=== PATIENT | female | born 1990 | race Caucasian/White ===

== ENCOUNTER 2017-04-02 12:39 | Emergency (ER) | payer OTHER ==
--- NOTE | 2017-04-02 14:18 | RAD ---
HISTORY: syncope, head trauma COMPARISONS: None TECHNIQUE: Multiple contiguous axial CT scans were obtained of the head without intravenous contrast. FINDINGS: HEMORRHAGE/INFARCT: There is no hemorrhage or acute infarct. MASSES/SHIFT: There is no mass or shift. EXTRA-AXIAL SPACES: There are no extra-axial fluid collections. SULCI AND VENTRICLES: The sulci and ventricles are normal in size and position for the patient's stated age. CEREBRUM: There are no focal parenchymal abnormalities. BRAINSTEM: There are no focal parenchymal abnormalities. CEREBELLUM: There are no focal parenchymal abnormalities. VESSELS: The vessels are grossly normal. PARANASAL SINUSES: The paranasal sinuses are clear. ORBITS: The orbits are unremarkable. BONES AND SOFT TISSUE: No bone or soft tissue abnormalities are noted. OTHER: None IMPRESSION: NO ACUTE INTRACRANIAL PATHOLOGY.
[2017-04-02 14:24] LABS: Hematocrit 37 % (35-47); Hemoglobin 12.6 g/dl (12.0-16.0); Mean Corpuscular HGB Conc 34 g/dl (31-36); Mean Corpuscular Hemoglobin 32 pg (27-31); Mean Corpuscular Volume 94 fL (80-97); Red Blood Count 3.99 10^6/ul (4.0-5.4); Red Cell Distribution Width 14 % (10.5-15); White Blood Count 9.3 10^3/ul (3.5-10.8)
[2017-04-02 14:25] LABS: Add Diff/Slide Review? Slide Review Added; Comments Flag Yes
[2017-04-02 14:37] VITALS: BP 131/87
[2017-04-02 14:39] LABS: ALT 163 U/L (7-52); Albumin 4.3 g/dL (3.2-5.2); Alkaline Phosphatase 59 U/L (34-104); BUN/Creatinine Ratio 16.4 (8-20); Blood Urea Nitrogen 12 mg/dL (6-24); CO2 Carbon Dioxide 26 mmol/L (22-32); Calcium 9.3 mg/dL (8.6-10.3); Chloride 104 mmol/L (101-111); EGFR African American 123.9 (>60); EGFR Non-African American 96.4 (>60); Globulin 3.2 g/dL (2-4); Glucose 96 mg/dL (70-100); Total Protein 7.5 g/dL (6.4-8.9)
[2017-04-02 14:49] LABS: Anion Gap 6 mmol/L (2-11); Sodium 136 mmol/L (133-145)
[2017-04-02 14:56] LABS: Mean Platelet Volume 9 um3 (7.4-10.4)
--- NOTE | 2017-04-02 15:33 | ED ---
Ermias Oneal Angela, scribed for Kathryn Bello MD on 04/02/17 at 1322 . Syncope/Near Syncope - HPI Summary HPI Summary: This pt is a 26 y/o female accompanied by significant other presenting to [facility] c/o headache s/p syncope last night at 2014. Pt reports she had a head strike and since then she has headache. Pt denies vomiting. She is an inpatient at [facility] for heroin addiction. Pt states she was a heroin user for 5 years. Pt reports she got a vivitrol shot at about 1900 last night and 1 hour after she passed out and had a syncopal episode. She has been on vivitrol for 1 month now. Pt notes she felt light-headed, dizzy and her hands began to sweat prior to her syncope. Pt states she fell backwards straight on her head. She denies any other PMHx. - History Of Current Complaint Chief Complaint: EDSyncope Hx Obtained From: Patient Onset/Duration: Lasting Days - headache, Still Present Timing: Constant - headache Context: Witnessed Associated Head Trauma: Yes Aggravating Factor(s): Nothing Alleviating Factor(s): Nothing Associated Signs And Symptoms: Diaphoresis, Dizzy, Headache, Lightheadedness, Other - NEG: vomiting - Allergies/Home Medications Allergies/Adverse Reactions: Allergies Allergy/AdvReac Type Severity Reaction Status Date / Time No Known Allergies Allergy Verified 04/02/17 12:53 PMH/Surg Hx/FS Hx/Imm Hx Endocrine/Hematology History: Denies: Hx Diabetes Cardiovascular History: Denies: Hx Hypertension Infectious Disease History: Yes Infectious Disease History: Denies: Traveled Outside the [place] in Last 30 Days - Social History Alcohol Use: None Substance Use Type: Reports: Heroin Smoking Status (MU): Heavy Every Day Tobacco Smoker Review of Systems Positive: Skin Diaphoresis - before syncope, now resolved. Negative: Fever, Chills Negative: Chest Pain Negative: Shortness Of Breath Negative: Vomiting Neurological: Other - light-headedness and dizziness before syncope, now resolved Positive: Headache - s/p head strike, Syncope - last night All Other Systems Reviewed And Are Negative: Yes Physical Exam - Summary Physical Exam Summary: General: Well appearing, no pain distress Skin: Warm, Dry. There is some bruising. Eyes: EOMI, YVAN ENT: Pharynx normal, TMs normal Neck: Supple, nontender Respiratory: CTA, breath sounds present, no rhonchi, no wheezes, no rales Cardiovascular: RRR, no murmur, no rub, no gallop Abdomen: Soft, nontender, Non-distended, no guarding, no rebound Bowel: Present Musculoskeletal: BEKAH, No edema Neuro: Sensory/motor intact, A&Ox3, CN intact 2-12 Psych: Affect/mood appropriate Triage Information Reviewed: Yes Vital Signs On Initial Exam: Initial Vitals Temp Pulse Resp BP Pulse Ox 98.1 F 87 16 114/72 100 04/02/17 12:51 04/02/17 12:51 04/02/17 12:51 04/02/17 12:51 04/02/17 12:51 Vital Signs Reviewed: Yes - [place] Coma Scale Coma Scale Total: 15 Diagnostics - Vital Signs Vital Signs Temp Pulse Resp BP Pulse Ox 04/02/17 12:51 98.1 F 87 16 114/72 100 - Laboratory Lab Results: Lab Results 04/02/17 04/02/17 Range/Units 14:10 14:10 WBC 9.3 (3.5-10.8) 10^3/ul RBC 3.99 L (4.0-5.4) 10^6/ul Hgb 12.6 (12.0-16.0) g/dl Hct 37 (35-47) % MCV 94 (80-97) fL MCH 32 H (27-31) pg MCHC 34 (31-36) g/dl RDW 14 (10.5-15) % Plt Count 214 (150-450) 10^3/ul MPV 9 (7.4-10.4) um3 Neut % (Auto) 66.7 (38-83) % Lymph % (Auto) 27.7 (25-47) % Kerr % (Auto) 4.7 (1-9) % Eos % (Auto) 0.6 (0-6) % Baso % (Auto) 0.3 (0-2) % Absolute Neuts (auto) 6.2 (1.5-7.7) 10^3/ul Absolute Lymphs (auto) 2.6 (1.0-4.8) 10^3/ul Absolute Monos (auto) 0.4 (0-0.8) 10^3/ul Absolute Eos (auto) 0.1 (0-0.6) 10^3/ul Absolute Basos (auto) 0 (0-0.2) 10^3/ul Absolute Nucleated RBC 0.01 10^3/ul Nucleated RBC % 0.1 Sodium 136 (133-145) mmol/L Potassium TNP Chloride 104 (101-111) mmol/L Carbon Dioxide 26 (22-32) mmol/L Anion Gap 6 (2-11) mmol/L BUN 12 (6-24) mg/dL Creatinine 0.73 (0.51-0.95) mg/dL Est GFR ( Amer) 123.9 (>60) Est GFR (Non-Af Amer) 96.4 (>60) BUN/Creatinine Ratio 16.4 (8-20) Glucose 96 (70-100) mg/dL Calcium 9.3 (8.6-10.3) mg/dL Magnesium TNP Total Bilirubin 0.30 (0.2-1.0) mg/dL AST TNP ALT 163 H (7-52) U/L Alkaline Phosphatase 59 (34-104) U/L Troponin I 0.00 (<0.04) ng/mL Total Protein 7.5 (6.4-8.9) g/dL Albumin 4.3 (3.2-5.2) g/dL Globulin 3.2 (2-4) g/dL Albumin/Globulin Ratio 1.3 (1-3) Result Diagrams: 04/02/17 14:10 04/02/17 14:10 Lab Statement: Any lab studies that have been ordered have been reviewed, and results considered in the medical decision making process. - CT Brain CT CT Interpretation: No Acute Changes - IMPRESSION: No acute intracranial pathology. ED physician has reviewed this radiology report and agrees. CT Interpretation Completed By: Radiologist - EKG 1331 Cardiac Rate: NL - 79 bpm EKG Rhythm: Sinus Rhythm Course/Dx Course Of Treatment: 26 yo with likely syncope 90 mins after getting naltrexone shot at [employer] last night she did sustain and head injury. ct brain neg labs neg (blood was hemolyzed) but given nl book sewer doubtful k was elevated - Diagnoses Provider Diagnoses: Concussion, Syncope Discharge - Discharge Plan Condition: Stable Disposition: HOME Referrals: Non Staff,Doctor [Primary Care Provider] - Additional Instructions: Please follow up with your primary care provider. RETURN TO THE ED FOR ANY WORSENING SYMPTOMS. The documentation as recorded by the Ermias bansal Angela accurately reflects the service I personally performed and the decisions made by me, Kathryn Bello MD.
[2017-04-02 15:56] LABS: Urine Bilirubin Negative (Negative); Urine Glucose Negative (Negative); Urine Nitrite Negative (Negative)
== END 2017-04-02 16:13 | disposition home or self-care (01) ==
LOC: ED 12:39
DX: S06.0X9A Concussion with loss of consciousness of unspecified duration, initial encounter (principal); R55 Syncope and collapse; R42 Dizziness and giddiness; R51 Headache; F17.210 Nicotine dependence, cigarettes, uncomplicated; W19.XXXA Unspecified fall, initial encounter; Y93.9 Activity, unspecified; Y92.9 Unspecified place or not applicable
CPT/HCPCS: 36415; 70450; 80053; 81003; 84484; 85025; 93005; 99282

== ENCOUNTER 2017-06-12 01:37 | Emergency (ER) | payer OTHER ==
[2017-06-12] MEDS ORDERED: Ketorolac INJ* 60 MG/2 ML VIAL IM ONE (01:50)
[2017-06-12] MEDS ORDERED: oxyCODONE/Acetamin 5/325 MG* TAB PO ONE (01:50)
[2017-06-12] MEDS ORDERED: Clindamycin CAP* 150 MG PO ONE (01:51)
[2017-06-12 02:50] VITALS: BP 138/84
--- NOTE | 2017-06-12 02:56 | ED ---
Ermias Oneal Angela, scribed for Jackelyn Rowe MD on 06/12/17 at 0145 . Throat Pain/Nasal Congestion - HPI Summary HPI Summary: This pt is a 26 y/o female presenting to [facility] c/o tooth pain s/p trauma. Pt reports she injured her tooth on a lollipop around 15:00 yesterday (06/11/17). Pt states she broke part of her tooth. She rates her pain 8/10 in severity. Pt notes she does not have a dentist. NKDA. - History of Current Complaint Time Seen by Provider: 06/12/17 01:39 Hx Obtained From: Patient Onset/Duration: Sudden Onset, Still Present Associated Signs And Symptoms: Negative: Dysphagia, FB Sensation, Drooling, Wheezing, Hoarseness, Sinus Discomfort, Nasal Discharge Cough: None Related History: Other (Noted In Comments) - broke tooth on a lollipop - Allergies/Home Medications Allergies/Adverse Reactions: Allergies Allergy/AdvReac Type Severity Reaction Status Date / Time No Known Allergies Allergy Verified 04/02/17 12:53 PMH/Surg Hx/FS Hx/Imm Hx Endocrine/Hematology History: Denies: Hx Diabetes Cardiovascular History: Denies: Hx Hypertension Psychiatric History: Reports: Hx Substance Abuse - heroin - Family History Known Family History: Negative: Hypertension, Diabetes - Social History Alcohol Use: None Substance Use Type: Reports: Heroin Smoking Status (MU): Heavy Every Day Tobacco Smoker Review of Systems Negative: Fever Eyes: Negative Positive: Dental Pain Cardiovascular: Negative Genitourinary: Negative Musculoskeletal: Negative Skin: Negative Neurological: Negative All Other Systems Reviewed And Are Negative: Yes Physical Exam - Summary Physical Exam Summary: VITAL SIGNS: Reviewed. GENERAL: Patient is a well-developed and nourished female who is lying comfortable in the stretcher. Patient is not in any acute respiratory distress. HEAD AND FACE: No signs of trauma. No ecchymosis, hematomas or skull depressions. No sinus tenderness. EYES: PERRLA, EOMI x 2, No injected conjunctiva, no nystagmus. EARS: Hearing grossly intact. Ear canals and tympanic membranes are within normal limits. MOUTH: Oropharynx within normal limits. Multiple decay and missing teeth. Tenderness over the left lower last molar with surrounding mild inflammation. NECK: Supple, trachea is midline, no adenopathy, no JVD, no carotid bruit, no c- spine tenderness, neck with full ROM. CHEST: Symmetric, no tenderness at palpation LUNGS: Clear to auscultation bilaterally. No wheezing or crackles. CVS: Regular rate and rhythm, S1 and S2 present, no murmurs or gallops appreciated. ABDOMEN: Soft, non-tender. No signs of distention. No rebound no guarding, and no masses palpated. Bowel sounds are normal. EXTREMITIES: FROM in all major joints, no edema, no cyanosis or clubbing. NEURO: Alert and oriented x 3. No acute neurological deficits. Speech is normal and follows commands. SKIN: Dry and warm Triage Information Reviewed: Yes Vital Signs Reviewed: Yes EENT Course/Dx - Course Course Of Treatment: Pt is a 26 y/o female who presents with dental pain s/p trauma. Pt reports she injured her tooth on a lollipop around 15:00 yesterday (). Pt states she broke part of her tooth. In the ED course, the pt was given clindamycin, Toradol, and Percocet. Pt will be discharged home and is instructed to follow up with a dentist. She will be given a prescription for percocet and clindamycin. - Diagnoses Provider Diagnoses: Pain, dental, Gingivitis Discharge - Discharge Plan Condition: Stable Disposition: HOME Prescriptions: Clindamycin Cap(NF) [Clindamycin Cap 300 mg Cap(NF)] 300 mg PO Q6H #30 cap oxyCODONE/Acetamin 5/325 MG* [Percocet 5/325 TAB*] 1 tab PO Q6H PRN #14 tab MDD 4 PRN Reason: Pain Patient Education Materials: Gingivitis (ED), Toothache (ED) Referrals: Non Staff,Doctor [Primary Care Provider] - Additional Instructions: Please follow up with a dentist as soon as possible. See referral sheet attached. RETURN TO EMERGENCY DEPARTMENT FOR ANY NEW OR WORSENING SYMPTOMS. The documentation as recorded by the Ermias bansal Angela accurately reflects the service I personally performed and the decisions made by , Jackelyn Rowe MD.
== END 2017-06-12 02:53 | disposition home or self-care (01) ==
LOC: ED 01:37
DX: K08.89 Other specified disorders of teeth and supporting structures (principal); K05.10 Chronic gingivitis, plaque induced
CPT/HCPCS: 96372; 99282; A9270-GY; J1885

== ENCOUNTER 2017-06-12 11:27 | Emergency (ER) | payer OTHER ==
[2017-06-12 11:32] VITALS: BP 157/64
[2017-06-12] MEDS ORDERED: Clindamycin CAP* 150 MG PO ONE ×2 (12:35)
[2017-06-12] MEDS ORDERED: Ketorolac INJ* 60 MG/2 ML VIAL IM ONE (12:36)
--- NOTE | 2017-06-30 12:04 | ED ---
Throat Pain/Nasal Congestion - HPI Summary HPI Summary: Patient presents to the ED with CC of dental pain. She notes to left lower jaw pain after she broke her tooth on a lollipop 2 days ago. Since that time the pain has been worsening and she is unable to cope with ibuprofen. She is a patient of [email or web address] and was seen in the bag maker hours by Dr. Rowe who prescribed clindamycin and NORCO. Her placement at [email or web address] precludes her from receiving narcotics and states she was unable to obtain the clindamycin since it must go through a different rx service. There is mild swelling but no erythema to the cheek or around the suspected broken tooth. She endorses many broken teeth and gingivitis at baseline and often will have toothaches. Denies having a regular dentist and does not see one regularly. Notes to ear pain radiating from the jaw, but denies neck pain. Pain is 10/10 and throbbing. - History of Current Complaint Chief Complaint: EDDentalPain Time Seen by Provider: 06/12/17 11:36 Hx Obtained From: Patient Onset/Duration: Sudden Onset Severity: Moderate Associated Signs And Symptoms: Negative: Dysphagia - Epiglottits Risk Factors Epiglottis Risk Factors: Negative - Allergies/Home Medications Allergies/Adverse Reactions: Allergies Allergy/AdvReac Type Severity Reaction Status Date / Time No Known Allergies Allergy Verified 06/14/17 04:20 PMH/Surg Hx/FS Hx/Imm Hx Previously Healthy: Yes Endocrine/Hematology History: Denies: Hx Diabetes Cardiovascular History: Denies: Hx Hypertension Psychiatric History: Reports: Hx Substance Abuse - heroin - Immunization History Date of Tetanus Vaccine: UTD Date of Influenza Vaccine: 03/2017 Hx Pertussis Vaccination: No Immunizations Up to Date: Unable to Obtain/Confirm Infectious Disease History: No Infectious Disease History: Denies: Traveled Outside the [place] in Last 30 Days - Family History Known Family History: Negative: Hypertension, Diabetes - Social History Occupation: Unemployed Lives: With Family Alcohol Use: None Hx Substance Use: Yes Substance Use Type: Reports: Heroin Hx Tobacco Use: Yes Smoking Status (MU): Heavy Every Day Tobacco Smoker Review of Systems Constitutional: Negative Negative: Fever, Chills, Fatigue Eyes: Negative Positive: Dental Pain Respiratory: Negative Genitourinary: Negative Positive: no symptoms reported, see HPI Musculoskeletal: Negative Neurological: Negative All Other Systems Reviewed And Are Negative: Yes Physical Exam Triage Information Reviewed: Yes Vital Signs On Initial Exam: Initial Vitals Temp Pulse Resp BP Pulse Ox 98.2 F 90 16 157/64 100 06/12/17 11:27 06/12/17 11:27 06/12/17 11:27 06/12/17 11:27 06/12/17 11:27 Vital Signs Reviewed: Yes Appearance: Positive: Well-Appearing, Well-Nourished Skin: Positive: Skin Color Reflects Adequate Perfusion, Other - No erythema to the ipsilateral cheek Musculoskeletal: Positive: Strength/ROM Intact Neurological: Positive: Speech Normal Psychiatric: Positive: Affect/Mood Appropriate - [place] Coma Scale Best Eye Response: 4 - Spontaneous Best Motor Response: 6 - Obeys Commands Best Verbal Response: 5 - Oriented Coma Scale Total: 15 Diagnostics - Vital Signs Vital Signs Temp Pulse Resp BP Pulse Ox 06/12/17 11:27 98.2 F 90 16 157/64 100 - Laboratory Lab Statement: Any lab studies that have been ordered have been reviewed, and results considered in the medical decision making process. EENT Course/Dx - Course Course Of Treatment: She is prescribed clindamycin at this visit and I have given her prescription for toradol (non-narcotic d/t her history). She is given precautions as d/t the delay in care and abx, there could be an abscess or other infection present under the tooth which could be worsened and lead to other complications. She is OK for discharge at this time and is OK with plan. She agrees to return for any worsening symptoms. - Diagnoses Provider Diagnoses: Pain, dental Discharge - Discharge Plan Condition: Stable Disposition: HOME Patient Education Materials: Toothache (ED) Referrals: No Primary Care Phys,NOPCP [Primary Care Provider] - Additional Instructions: Prescribed Toradol 10mg every 6 hours for pain Do not take ibuprofen while taking toradol Clindamycin 300mg four times daily for 7 days Images - Images Dental: 1 - Pain to the left lower jaw without surrounding erythema or obvious abscess
== END 2017-06-12 13:05 | disposition home or self-care (01) ==
LOC: ED 11:27
DX: K08.89 Other specified disorders of teeth and supporting structures (principal); R68.84 Jaw pain; F11.90 Opioid use, unspecified, uncomplicated; Z72.0 Tobacco use
CPT/HCPCS: 96372; 99282; A9270-GY; J1885

== ENCOUNTER 2017-06-12 20:28 | Emergency (ER) | payer OTHER ==
[2017-06-12] MEDS ORDERED: Lidocaine 1%* 5 ML VIAL INJ ONE (20:59)
[2017-06-12] MEDS ORDERED: Benzocaine/Butamben/Tetracain* SPRAY TOPICAL ONE (21:02)
[2017-06-12] MEDS ORDERED: Ibuprofen TAB* 800 MG PO ONE (21:38)
--- NOTE | 2017-06-12 22:02 | ED ---
Throat Pain/Nasal Congestion - HPI Summary HPI Summary: Pt here for 3rd time within 24 hours for persistent dental pain along Lt lower jaw. Pain is radiating into her Lt ear and it is distracting her from doing anything. Denies fever, chills, drainage, neck pain, ocular pain. Was seen at about 1:[address] Rowe who rx'd clindamycin and percocet. Unfortunately pt is on Vivitrol and so has not had pain relief. She came back again today at noon and received toradol IM along w/ PO toradol. She resides at [facility] and reports she will not have access to her medication until tomorrow. Here for the 3rd time as she can't take the pain anymore. Admits to cracking her tooth yesterday on a lollipop - pain since. - History of Current Complaint Chief Complaint: EDDentalPain Time Seen by Provider: 06/12/17 20:33 Hx Obtained From: Patient - Allergies/Home Medications Allergies/Adverse Reactions: Allergies Allergy/AdvReac Type Severity Reaction Status Date / Time No Known Allergies Allergy Verified 04/02/17 12:53 PMH/Surg Hx/FS Hx/Imm Hx Previously Healthy: Yes Endocrine/Hematology History: Denies: Hx Diabetes, Autoimmune Disease Cardiovascular History: Denies: Hx Hypertension Psychiatric History: Reports: Hx Substance Abuse - heroin - currently at [facility] and on vivitrol IM's monthly - working well - Immunization History Date of Tetanus Vaccine: UTD Date of Influenza Vaccine: 03/2017 Infectious Disease History: No Infectious Disease History: Denies: Traveled Outside the [place] in Last 30 Days - Family History Known Family History: Negative: Hypertension, Diabetes - Social History Lives: Assisted Living - [facility] Alcohol Use: None Substance Use Type: Reports: Heroin Substance Use Comment - Amount & Last Used: in recovery process Hx Tobacco Use: Yes Smoking Status (MU): Current Every Day Smoker Review of Systems Constitutional: Negative Negative: Fever, Chills Eyes: Negative Negative: Photophobia, Blurred Vision, Diplopia Positive: Dental Pain, Ear Ache. Negative: Sore Throat, Nasal Discharge Cardiovascular: Negative Negative: Palpitations, Chest Pain Respiratory: Negative Negative: Shortness Of Breath Gastrointestinal: Negative Negative: Abdominal Pain, Vomiting, Diarrhea, Nausea Positive: no symptoms reported Musculoskeletal: Negative Skin: Negative Positive: Headache - from pain. Negative: Weakness, Paresthesia, Numbness, Syncope, Slurred Speech Positive: Anxious - upset about pain All Other Systems Reviewed And Are Negative: Yes Physical Exam Triage Information Reviewed: Yes Vital Signs On Initial Exam: Initial Vitals Temp Pulse Resp BP Pulse Ox 97.3 F 101 20 153/111 100 06/12/17 20:34 06/12/17 20:34 06/12/17 20:34 06/12/17 20:34 06/12/17 20:34 Vital Signs Reviewed: Yes Appearance: Positive: Well-Appearing, Well-Nourished, Pain Distress Skin: Positive: Warm, Dry - no facial erythema or edema Head/Face: Positive: Normal Head/Face Inspection Eyes: Positive: Normal, EOMI, YVAN, Conjunctiva Clear ENT: Positive: Normal ENT inspection, Hearing grossly normal, Pharynx normal, TMs normal, Uvula midline. Negative: Nasal congestion, Nasal drainage, Trismus , Muffled voice Dental: Positive: Gross Decay/Caries @, Dental Fracture @ - #18 mostly missing - remnants of tooth remains w/ central pulp present - TTP, #19 w/ decay and areas of enamel missing - pulp also visible here and TTP. Negative: Abscess @ Neck: Positive: Supple, Nontender, No Lymphadenopathy Respiratory/Lung Sounds: Positive: Clear to Auscultation, Breath Sounds Present. Negative: Stridor Cardiovascular: Positive: Normal, RRR Abdomen Description: Positive: Nontender, No Organomegaly, Soft Bowel Sounds: Positive: Present Musculoskeletal: Positive: Normal, Strength/ROM Intact Neurological: Positive: Normal, Sensory/Motor Intact, Alert, Oriented to Person Place, Time, CN Intact II-III Psychiatric: Positive: Anxious - upset about pain, holding her face, tearful, frustrated Procedures - Procedure Summary Procedure Summary: #18 and #19 anesthetized w/ cetacaine, then lidocaine 1% - pt tolerated well and pain improved - dycal applied to both areas w/ good seal - pt tolerated well. Minimal blood loss and numbness limited to teeth and cheek - pain removed from ear. Diagnostics - Vital Signs Vital Signs Temp Pulse Resp BP Pulse Ox 06/12/17 20:34 97.3 F 101 20 153/111 100 - Laboratory Lab Statement: Any lab studies that have been ordered have been reviewed, and results considered in the medical decision making process. Re-Evaluation - Re-Evaluation First Eval Change: Improved EENT Course/Dx - Course Course Of Treatment: Pt's dental pain mostly resolved after dental blocks w/ seals but requesting ibuprofen before leaving. This was administered and pt tolerated applesauce well. Shortly after this however pt reports pain returned, nerve pain and also especially sore in areas of injection sites. Offered pt acetaminophen, hydroxyzine to aid in sleep and ice pack in the event some pain is from swelling at injection sites. She agrees w/ plan and will call [facility] dental tomorrow to see if they can see her sooner. Pt's vivitrol will impede any further pain control via narcotics. She will try to keep ibuprofen and acetaminophen in her system until seen by dentist. Danger s/sx of when to return discussed w/ pt. [facility] paperwork completed. - Diagnoses Provider Diagnoses: Pain, dental Discharge - Discharge Plan Condition: Stable Disposition: HOME Patient Education Materials: Toothache (ED) Referrals: No Primary Care Phys,NOPCP [Primary Care Provider] - Additional Instructions: 2 of your molars along your back left jaw were sealed with a temporary filling as you appear to have nerve root exposure causing your pain. Do not bite or chew this area but stay hydrated and nourished with watrer, gatorade, broth nad soft foods (ie. applesauce, jello, yogurt, cooked eggs, etc). Avoid hot or cold foods as well as sugary foods. You may use ice or heat on your face for pain and take acetaminophen alternating with ibuprofen for pain. Keep appointment with dentist Thursday to better address the problem. Continue clindamycin and toradol as directed by previous providers seen today. *If you develop fever, chills, neck pain, difficulty breathing or swallowing, return to ED
[2017-06-12] MEDS ORDERED: Acetaminophen TAB* 325 MG PO ONE (22:10)
[2017-06-12] MEDS ORDERED: hydrOXYzine HCL TAB* 50 MG PO ONE (22:10)
[2017-06-12 22:49] VITALS: BP 134/96
== END 2017-06-12 22:40 | disposition home or self-care (01) ==
LOC: ED 20:28
DX: K08.89 Other specified disorders of teeth and supporting structures (principal); F17.200 Nicotine dependence, unspecified, uncomplicated
CPT/HCPCS: 96372; 99282; A9270-GY

== ENCOUNTER 2017-06-14 04:01 | Observation (INO) | payer OTHER ==
[2017-06-14] MEDS ORDERED: Ketorolac INJ* 30 MG/ML 1 ML VIAL IV PUSH ONE (04:57)
[2017-06-14 05:58] LABS: EGFR Non-African American 112.2 (>60)
[2017-06-14] MEDS ORDERED: Iohexol 300* (CONTRAST) 10 ML SDV IV ONE (06:00)
[2017-06-14] MEDS ORDERED: Clindamycin 900 MG IVPREMIX(* 900 MG/50 ML SDV IV ONE (06:21)
[2017-06-14 06:23] LABS: ABS Basophils 0.1 10^3/ul (0-0.2); ABS Eosinophils 0.1 10^3/ul (0-0.6); ABS Lymphocytes 3.1 10^3/ul (1.0-4.8); ABS Neutrophils 7.7 10^3/ul (1.5-7.7); ABS Nucleated RBC 0 10^3/ul; Eosinophil % 0.7 % (0-6); Hematocrit 38 % (35-47); Hemoglobin 13.1 g/dl (12.0-16.0); Lymphocyte % 25.9 % (25-47); Mean Corpuscular HGB Conc 35 g/dl (31-36); Mean Corpuscular Hemoglobin 33 pg (27-31); Mean Corpuscular Volume 95 fL (80-97); Nucleated Red Blood Cells % 0.1; Red Blood Count 4.01 10^6/ul (4.0-5.4); Red Cell Distribution Width 14 % (10.5-15); White Blood Count 11.9 10^3/ul (3.5-10.8)
--- NOTE | 2017-06-14 06:42 | ED ---
Tyrell Oneal Abhishek, scribed for Katelyn Orozco MD on 06/14/17 at 0453 . Complex/Multi-Sys Presentation - HPI Summary HPI Summary: This patient is a 26 year old F presenting to [facility] with a chief complaint of dental pain since 06/10/17 at 0000. The patient rates the pain 3/10 in severity. Symptoms aggravated by nothing. Symptoms alleviated by nothing. Patient reports ATKINS, anxiety and depression. Patient denies fevers, chills, vomiting, chest pain , back pain, hematuria, hematochezia, edema LE, bruising, rashes, and abscesses, . Medications and antibiotics reviewed. - History Of Current Complaint Chief Complaint: EDDentalPain Time Seen by Provider: 06/14/17 04:12 Hx Obtained From: Patient Onset/Duration: Gradual Onset, Lasting Days - since 06/10/17 Timing: Constant Location: Pain At: - Dental region Aggravating Factor(s): nothing Alleviating Factor(s): nothing Associated Signs And Symptoms: Positive: Palpitations, Edema, Other - Anxiety and depression. Negative chills, back pain, bruises, rashes, hematuria, hematochezia, edema and abscess. Negative: Chest Pain, Vomiting, Fever - Allergies/Home Medications Allergies/Adverse Reactions: Allergies Allergy/AdvReac Type Severity Reaction Status Date / Time No Known Allergies Allergy Verified 06/14/17 04:20 PMH/Surg Hx/FS Hx/Imm Hx Endocrine/Hematology History: Denies: Hx Diabetes Cardiovascular History: Denies: Hx Hypertension Psychiatric History: Reports: Hx Substance Abuse - heroin - currently at [facility] and on [email or web address] monthly - working well - Immunization History Date of Tetanus Vaccine: UTD Date of Influenza Vaccine: 03/2017 Infectious Disease History: No Infectious Disease History: Denies: Traveled Outside the [place] in Last 30 Days - Family History Known Family History: Negative: Hypertension, Diabetes - Social History Alcohol Use: None Substance Use Type: Reports: Heroin Substance Use Comment - Amount & Last Used: in recovery process Hx Tobacco Use: Yes Smoking Status (MU): Current Every Day Smoker Review of Systems Negative: Fever, Chills Eyes: Negative Positive: Dental Pain Negative: Chest Pain Respiratory: Negative Gastrointestinal: Other - Negative hematochezia Negative: Vomiting Negative: hematuria Musculoskeletal: Other - Negative back pain, Negative: Edema Skin: Other - Abscess Negative: Rash, Bruising Positive: Headache Positive: Anxious, Depressed All Other Systems Reviewed And Are Negative: Yes Physical Exam - Summary Physical Exam Summary: Appearance: Alert, conversive, nontoxic appearing Skin: Warm, dry, no mottling, no rashes, no contusions HEENT: Poor dentition, multiple dental carries Significant swelling to the lower jaw Neck: No masses on the neck, supple Respiratory: Clear to auscultation, breath sounds present, no rales, no rhonchi , no wheezes Cardiovascular: RRR, pulses are symmetrical in both lower and upper extremities Abdomen: Soft, non-tender Bowel Sounds: Present Musculoskeletal: No CVA tenderness, no obvious deformity, moving all extremities in a grossly normal manner Neurological: A&Ox3, CN II-XII Intact, moving all extremities symmetrically Psychiatric: Normal affect and mood Triage Information Reviewed: Yes Vital Signs On Initial Exam: Initial Vitals Temp Pulse Resp BP Pulse Ox 97.8 F 99 16 134/90 100 06/14/17 04:08 06/14/17 04:08 06/14/17 04:08 06/14/17 04:08 06/14/17 04:08 Vital Signs Reviewed: Yes Diagnostics - Vital Signs Vital Signs Temp Pulse Resp BP Pulse Ox 06/14/17 04:24 92 98 06/14/17 04:08 97.8 F 99 16 134/90 100 - Laboratory Result Diagrams: 06/14/17 05:10 06/14/17 05:10 Lab Statement: Any lab studies that have been ordered have been reviewed, and results considered in the medical decision making process. Complex Multi-Symp Course/Dx Course Of Treatment: This patient is a 26 year old F presenting to [facility] with a chief complaint of dental pain since 06/10/17 at 0000. Patient reports ATKINS, anxiety and depression. Patient denies fevers, chills, vomiting, chest pain, back pain, hematuria, hematochezia, edema LE, bruising, rashes, and abscesses,. PT will be signed out to Dr. Jackson with dx of cellulitis and awating maxillofacial CT results. - Diagnoses Provider Diagnoses: Cellulitis Discharge - Discharge Plan Condition: Stable Disposition: OTHER Discharge Disposition Comment: Pt will be signed out to Dr. Jackson pending disposition and awaiting CT Referrals: No Primary Care Phys,NOPCP [Primary Care Provider] - The documentation as recorded by the Tyrell bansal Abhishek accurately reflects the service I personally performed and the decisions made by me, Katelyn Orozco MD.
--- NOTE | 2017-06-14 08:24 | RAD ---
INDICATION: Dental abscess. COMPARISON: There are no prior studies available for comparison. TECHNIQUE: Contiguous axial sections of the axial images of the facial bones were obtained and reconstructed in the coronal and sagittal planes. The exam was performed following intravenous contrast with 75 mL of Omnipaque 300 nonionic contrast. FINDINGS: Soft tissue swelling is noted adjacent to the mandible on the left side most consistent with cellulitis and myositis. No fluid collection or abscess is seen. There are multiple carious lesions and bilateral periapical disease adjacent to multiple teeth in the mandible and maxilla.. There is mild mucosal thickening in the right maxillary sinus. The paranasal sinuses and mastoid air cells otherwise appear clear. There is moderate to severe deviation of the nasal septum toward the left side. The nasal passageways otherwise appear clear. IMPRESSION: 1. LEFT PERIMANDIBULAR CELLULITIS AND MYOSITIS WITHOUT EVIDENCE FOR ABSCESS. 2. MULTIFOCAL CARIOUS LESIONS AND PERIAPICAL DISEASE RECOMMEND DENTAL CONSULTATION.
[2017-06-14] MEDS ORDERED: Ondansetron INJ* 2 MG/ML VIAL IV PRN (09:20)
[2017-06-14] MEDS ORDERED: Piperacillin/Tazobac ADVAN(*) 3.375 GM in NS 0.9% 100 ML* 100 ML IVPB ONE (09:20)
[2017-06-14] MEDS ORDERED: cloNIDine TAB* 0.1 MG PO PRN (09:22)
[2017-06-14] MEDS ORDERED: predniSONE TAB* 20 MG PO ONE (09:26)
[2017-06-14] MEDS: NS 0.9% 1000 ML* 1,000 ML IV SCH (10:00)
[2017-06-14] MEDS ORDERED: Zosyn per Pharmacy* NOTE FOLLOW UP SCH (10:00)
[2017-06-14] MEDS: Clindamycin 900 MG IVPREMIX(* 900 MG/50 ML SDV IV SCH ×2 (10:23→21:37)
[2017-06-14] MEDS ORDERED: Lidocaine 2% VISCOUS* 15 ML UDC SWISH SPIT PRN (12:15)
--- NOTE | 2017-06-14 12:25 | HP ---
CC: VICENTE; [facility] * HISTORY AND PHYSICAL: DATE OF ADMISSION: 06/14/17 PRIMARY CARE PROVIDER: VICENTE. ATTENDING PHYSICIAN WHILE IN THE HOSPITAL: Nafisa Montenegro MD * (report dictated by Diego Longoria NP) CHIEF COMPLAINT: Left-sided facial swelling. HISTORY OF PRESENT ILLNESS: Ms. Timmons is a 26-year-old female patient who has poor dentition, for the last several days she has been having pain mostly along her lower left molar. She does have dental cavity there. She has been in and out of the ER for clindamycin and pain management. She had a dental block, she says a temporary filling placed about 2 days ago. The patient says that since then she has noticed that she has had swelling and erythema noted to the left side of her face and she has been getting progressively worse. There has been no fevers, chills. No vomiting. No trouble swallowing. No diarrhea. She denies having any pain down in her neck, but she was concerned because the swelling was getting worse, so she presented back to the ED today for further evaluation and care. The patient was evaluated here. It was felt that she had failed outpatient therapy and we were asked to evaluate for admission. PAST MEDICAL HISTORY: Significant for: 1. Anxiety. 2. Depression. 3. History of IV drug use. 4. Hepatitis C. 5. Bipolar disorder. PAST SURGICAL HISTORY: 1. The patient has had a . 2. Draper tooth extraction. HOME MEDICATIONS: According to the list that she provided include: 1. Vivitrol 1 injection monthly. 2. Toradol 10 mg every 6 hours as needed. 3. Clonidine 0.1 mg p.o. b.i.d. as needed. 4. Effexor 75 mg p.o. daily. 5. Oxcarbazepine 150 mg p.o. b.i.d. 6. Remeron 15 mg p.o. at bedtime. 7. Clindamycin 300 mg p.o. 4 times a day. 8. Gabapentin 300 mg p.o. t.i.d. ALLERGIES TO MEDICATIONS: Include no known drug allergies. FAMILY HISTORY: She says to her knowledge both her parents are healthy. SOCIAL HISTORY: She is a pack a day smoker. She does not drink alcohol. She is again at the [employer] [facility]. Surrogate decision maker is her , Juvenal. She has 2 children. REVIEW OF SYSTEMS: There was no documented fever. She denied having any significant weight change. There was no double vision. She denies having any ear discharge. There was no rhinorrhea. No sore throat. No thyroid enlargement. Denied having any chest pain. There was no orthopnea. No nocturnal dyspnea. No abdominal pain. No nausea. No vomiting. No dysuria. No frequency. No seizure. No loss of consciousness. No pruritus and no skin ulcerations. Review of 14 systems was completed, all others are negative. PHYSICAL EXAMINATION GENERAL: At this time, Ms. Timmons is a 26-year-old female patient. She is sitting in the ER stretcher. She appears to be well nourished, well developed, does not appear to be in acute distress. VITAL SIGNS: Blood pressure 117/66, pulse 90, respirations 18, O2 sat 98%, temperature 97.8. HEENT: Head is atraumatic, normocephalic. Eyes: EOMs intact. Sclerae anicteric, not pale. Throat: Oral mucosa appears to be moist. No oropharyngeal erythema. She does have significant amount of dental caries, particularly on the left side along the left mandible, swollen, tender to palpation. There is no tenderness in the deep cervical chain at this point and there is no difficulty with swallowing noted. Her ear, the TMs are poorly veras. There were no signs of erythema or retraction. NECK: Supple. LUNGS: Clear to auscultation bilaterally. No wheezes, rales, or rhonchi. HEART: S1, S2. Regular rate and rhythm. No murmurs, rubs, or gallops. ABDOMEN: Soft, flat, nontender. Bowel sounds present. EXTREMITIES: Pulses were 2+ throughout. She is moving all 4 extremities with 5 /5 strength. NEUROLOGICAL: The patient is awake. She is alert. She is oriented x3. Tongue is midline. Hat Steamer are equal. No gross focal deficits. SKIN: Intact. DIAGNOSTIC STUDIES/LAB DATA: Reveals WBC of 11.9, RBC of 4.01, hemoglobin 13.1 , hematocrit of 38, platelet count pending. Her sodium was 134, potassium pending, chloride 103, bicarb 23. BUN 14, creatinine 0.64, glucose 84, lactic 0.4, calcium 9.5. Total bili 0.5, ALT 115, albumin of 4.4. She had a maxillofacial CT. Impression: Left perimandibular cellulitis and myositis without evidence for abscess. Multifocal carious lesions and periapical disease. Recommend a dental consultation. Old medical records reviewed. ASSESSMENT AND PLAN: Ms. Timmons is a 26-year-old female patient coming into the ED today. She has been here several times with dental pain, now has swelling around her left mandible. We were asked to evaluate for admission. She will be admitted under observation status for: 1. Left mandible cellulitis. At this point, I do have a call placed out to our oral surgeons. Most likely, at some point, she will need that tooth pulled. I am going to go ahead and put her on some steroids, just a burst. In addition, just put her on Zosyn and clindamycin and we will continue to follow her closely. 2. Anxiety and depression, bipolar. She will continue meds as prescribed. 3. History of intravenous drug use. Follow with [facility]. 4. History of hepatitis C. She will need outpatient followup for this. 5. DVT prophylaxis: She is low risk. We will place her on SCDs. 6. Code status: Full code. 7. Fluids, electrolytes, and nutrition: She can have a soft regular diet. TIME SPENT: On admission was 60 minutes, greater than half the time was spent face- to-face with the patient obtaining my history and physical, other half the time was spent going over the plan of care with the patient and implementing the plan of care. I did discuss the plan of care with my attending, Dr. Montenegro, she is in agreement. DIEGO LONGORIA, WARREN [id number]/CPS #: [id number] SHITAL
[2017-06-14] MEDS: Venlafaxine EXT RELEASE CAP* 75 MG PO SCH ×2 (12:34→12:35)
[2017-06-14] MEDS: Gabapentin CAP(*) 300 MG PO SCH ×2 (13:17→20:18)
[2017-06-14] MEDS: ZOSYN 3.375 GM Q8H per EXTENDED INFUSION IVPB SCH ×4 (15:44→22:31)
[2017-06-14] MEDS: Ketorolac INJ* 15 MG/ML 1 ML VIAL IV PUSH PRN ×2 (15:55→23:53)
[2017-06-14] MEDS: OXcarbazepine TAB(*) 300 MG PO SCH (20:19)
[2017-06-14] MEDS: Mirtazapine TAB* 15 MG PO SCH (20:20)
[2017-06-15] MEDS: Acetaminophen TAB* 325 MG PO PRN ×2 (04:24→19:57)
[2017-06-15] MEDS: Clindamycin 900 MG IVPREMIX(* 900 MG/50 ML SDV IV SCH ×3 (05:17→21:03)
[2017-06-15] MEDS: ZOSYN 3.375 GM Q8H per EXTENDED INFUSION IVPB SCH ×6 (05:52→22:20)
[2017-06-15] MEDS: Ketorolac INJ* 15 MG/ML 1 ML VIAL IV PUSH PRN ×2 (08:15→15:50)
[2017-06-15] MEDS: Gabapentin CAP(*) 300 MG PO SCH ×3 (08:21→19:57)
[2017-06-15] MEDS: Venlafaxine EXT RELEASE CAP* 75 MG PO SCH ×2 (08:21→11:14)
[2017-06-15] MEDS: predniSONE TAB* 20 MG PO SCH ×2 (08:22→19:57)
[2017-06-15] MEDS: OXcarbazepine TAB(*) 300 MG PO SCH ×2 (08:22→19:58)
[2017-06-15] MEDS: NS 0.9% 1000 ML* 1,000 ML IV SCH (15:49)
--- NOTE | 2017-06-15 18:54 | PN ---
Subjective Date of Service: 06/15/17 Interval History: Pain well controlled Feels swelling has decreased no other complaints Objective Active Medications: Acetaminophen (Tylenol Tab*) 650 mg PO Q4H PRN PRN Reason: FEVER/PAIN Last Admin: 06/15/17 04:24 Dose: 650 mg Clonidine HCl (Catapres Tab*) 0.1 mg PO BID PRN PRN Reason: ANXIETY Last Admin: 06/14/17 12:34 Dose: 0.1 mg Gabapentin (Neurontin Cap(*)) 300 mg PO TID [facility] Last Admin: 06/15/17 16:01 Dose: 300 mg Sodium Chloride (Ns 0.9% 1000 Ml*) 1,000 mls @ 100 mls/hr IV PER RATE [facility] Last Admin: 06/15/17 15:49 Dose: 100 mls/hr Clindamycin HCl/Dextrose (Cleocin 900 Mg Ivpremix (*) Sdv) 900 mg in 50 mls @ 100 mls/hr IV Q8H [facility] Last Admin: 06/15/17 11:37 Dose: 100 mls/hr Piperacillin Sod/Tazobactam (Sod 3.375 gm/ Sodium Chloride) 100 mls @ 25 mls/ hr IVPB Q8H [facility] Last Admin: 06/15/17 15:50 Dose: 25 mls/hr Ketorolac Tromethamine (Toradol Inj*) 15 mg IV PUSH Q6H PRN PRN Reason: PAIN Last Admin: 06/15/17 15:50 Dose: 15 mg Lidocaine (Xylocaine 2% Viscous*) 20 ml SWISH SPIT Q3H PRN PRN Reason: PAIN Last Admin: 06/14/17 13:18 Dose: 20 ml Mirtazapine (Remeron Tab*) 15 mg PO BEDTIME [facility] Last Admin: 06/14/17 20:20 Dose: 15 mg Ondansetron HCl (Zofran Inj*) 4 mg IV Q6H PRN PRN Reason: NAUSEA Oxcarbazepine (Trileptal Tab(*)) 150 mg PO BID [facility] Last Admin: 06/15/17 08:22 Dose: 150 mg Pharmacy Consult (Zosyn Per Pharmacy*) 1 note FOLLOW UP .ZOSYN PER PHARMACY [facility] Prednisone (Deltasone Tab*) 20 mg PO BID [facility] Last Admin: 06/15/17 08:22 Dose: 20 mg Venlafaxine HCl (Effexor Xr Cap*) 75 mg PO DAILY [facility] Last Admin: 06/15/17 11:14 Dose: Not Given Vital Signs - 8 hr 06/15/17 06/15/17 06/15/17 11:14 11:45 15:36 Temperature 98.2 F 97.9 F Pulse Rate 102 93 Respiratory 16 16 16 Rate Blood Pressure 138/75 132/72 (mmHg) O2 Sat by Pulse 100 98 Oximetry 06/15/17 06/15/17 16:00 16:01 Temperature Pulse Rate Respiratory 16 Rate Blood Pressure (mmHg) O2 Sat by Pulse 98 Oximetry Oxygen Devices in Use Now: None Appearance: NAD Eyes: No Scleral Icterus, PERRLA Ears/Nose/Mouth/Throat: Clear Oropharnyx, Mucous Membranes Moist, - - poor dentition, swelling over left face up to zygomatic arch Neck: NL Appearance and Movements; NL JVP, Trachea Midline Respiratory: Symmetrical Chest Expansion and Respiratory Effort, Clear to Auscultation Cardiovascular: NL Sounds; No Murmurs; No JVD, RRR Abdominal: NL Sounds; No Tenderness; No Distention Lymphatic: No Cervical Adenopathy Extremities: No Edema Skin: No Rash or Ulcers, No Nodules or Sclerosis Neurological: Alert and Oriented x 3 Result Diagrams: 06/14/17 05:10 06/14/17 05:10 Assess/Plan/Problems-Billing Assessment: - Patient Problems (1) Myositis Comment: with cellulitis c/w clinda and zosyn prior to discharge c/w steroids but plan on d/c on discharge (2) Hepatitis C Comment: needs outpatient follow up (3) Bipolar disorder Comment: trileptal (4) DVT prophylaxis Comment: low risk ambulate ad sariah
[2017-06-15] MEDS: Mirtazapine TAB* 15 MG PO SCH (19:57)
[2017-06-16] MEDS: Clindamycin 900 MG IVPREMIX(* 900 MG/50 ML SDV IV SCH (03:06)
[2017-06-16] MEDS: ZOSYN 3.375 GM Q8H per EXTENDED INFUSION IVPB SCH ×2 (05:45)
[2017-06-16] MEDS: Ketorolac INJ* 15 MG/ML 1 ML VIAL IV PUSH PRN (07:28)
[2017-06-16 07:52] VITALS: BP 142/80
[2017-06-16] MEDS: Venlafaxine EXT RELEASE CAP* 75 MG PO SCH (08:44)
[2017-06-16] MEDS: Gabapentin CAP(*) 300 MG PO SCH (08:44)
[2017-06-16] MEDS: predniSONE TAB* 20 MG PO SCH (08:45)
[2017-06-16] MEDS: OXcarbazepine TAB(*) 300 MG PO SCH (08:45)
[2017-06-16] MEDS ORDERED: Piperacillin/Tazobactam 13.5 GM IV 24 hour continuous infusion IVPB SCH ×2 (22:00)
--- NOTE | 2017-06-17 14:30 | DS ---
CC: [facility] Rehab DISCHARGE SUMMARY: DATE OF ADMISSION: 06/14/17 DATE OF DISCHARGE: 06/16/17 PRIMARY CARE PROVIDER: None. PRIMARY DIAGNOSIS: Facial cellulitis and myositis. SECONDARY DIAGNOSES: Include: 1. Depression. 2. Anxiety. 3. History of intravenous drug use, currently clean. 4. Hepatitis C. 5. Bipolar disorder. MEDICATIONS ON DISCHARGE: Include: 1. Vivitrol 380 mg intramuscular monthly. 2. Toradol 10 mg every 6 hours. 3. Clonidine 0.1 mg twice daily. 4. Venlafaxine 75 mg daily. 5. Oxcarbazepine 150 mg twice daily. 6. Mirtazapine 15 mg at bedtime. 7. Gabapentin 300 mg 3 times a day. 8. Clindamycin 450 mg 3 times a day. 9. Acetaminophen 650 mg every 4 hours as needed for pain. IMAGING PERFORMED DURING HOSPITAL STAY: CT maxillofacial, impression: Left perimandibular celluliti s and myositis without evidence for abscess. Multifocal carious lesions and periapical disease with a recommended dental consultation. HISTORY OF PRESENT ILLNESS AND HOSPITAL COURSE: This is a 26-year-old female who presented to the [facility] after multiple visits to the ED with pain and dental caries, found with facial cellulitis with underlying myositis, admitted to the hospital, received clindamycin as well as Zosyn with improvemen t in the swelling. Care was coordinated for a discharge directly to Dr. Jamison' clinic for definitive therapy of dental disease. Additionally, care was coordinated with our Social Work to return to [facility] directly from Dr. Jamison' office. She remained afebrile with improving pain during the course of the hospital stay. There were no complications of the patient's hospital stay. Reasons to return to the hospital including, but not limited to, recurrent or worsening disease, wors ening swelling, worsening erythema, worsening pain, fever, chills, night sweats, bleeding from any so urce, inability to obtain or tolerate medications were discussed at length with the patient. She ack nowledged understanding. TIME SPENT: Greater than 45 minutes was spent on the discharge of this patient, greater than half wa s spent [id number] with the patient. [id number]/[facility] #: [id number]
== END 2017-06-16 09:10 | disposition home or self-care (01) ==
LOC: ED 04:01 → MED 08:36
PROVIDERS: ADMIT Internal Medicine; ATTEND Internal Medicine
DX: M60.9 Myositis, unspecified (principal); B19.20 Unspecified viral hepatitis C without hepatic coma; F31.9 Bipolar disorder, unspecified; L03.90 Cellulitis, unspecified; R60.9 Edema, unspecified; R00.2 Palpitations; R51 Headache
CPT/HCPCS: 36415; 70487; 80053; 83605; 84702; 85025; 87040; 96374; 99283; A9270-GY; G0378; J1885; J2543; J7512; Q9967

== ENCOUNTER 2019-05-26 15:54 | Emergency (ER) | payer OTHER ==
[2019-05-26 16:20] VITALS: BP 131/79
--- NOTE | 2019-05-26 16:35 | UC ---
Back Pain HPI - HPI Summary HPI Summary: 28 yo woman, works at [employer], injured today when she was carrying soaps, and slipped on soap on the floor and twisted her back, falling against her left hip. No meds taken. Has not used analgesics. - History of Current Complaint Chief Complaint: UCBackPain Stated Complaint: BACK INJ (WC) Time Seen by Provider: 05/26/19 16:21 Hx Obtained From: Patient Hx Last Menstrual Period: 05/19/19 Onset/Duration: Sudden Onset, Lasting Hours - 2 Severity Initially: Moderate Severity Currently: Moderate Pain Intensity: 8 Back Pain: Is Discrete @ - left lower lumbar area, Radiates To - left buttock Character: Aching, Spasmodic, Stiffness Aggravating Factor(s): Movement, Walking Alleviating Factor(s): Rest Associated Signs And Symptoms: Positive: Negative. Negative: Abdominal Pain, Bladder Incontinence, Bowel Incontinence Related History: Occupational Injury - Risk Factors AAA Risk Factors: Negative TAD Risk Factors: Negative Cauda Equina Risk Factors: Negative Epidural Abscess Risk Factors: Negative - Allergies/Home Medications Allergies/Adverse Reactions: Allergies Allergy/AdvReac Type Severity Reaction Status Date / Time Penicillins Allergy Swelling Verified 05/26/19 16:15 Home Medications: Home Medications Buprenorp/Nalox 8-2 MG FILM [Suboxone 8 mg-2 mg Sl Film] 1 each SL DAILY [History Confirmed 05/26/19] buPROPion HCl [Wellbutrin Sr] 450 mg PO DAILY 05/26/19 [History Confirmed ] PMH/Surg Hx/FS Hx/Imm Hx Psychological History: Anxiety, Other - on suboxone - Surgical History Surgical History: None - Family History Known Family History: Positive: Non-Contributory Negative: Hypertension, Diabetes - Social History Occupation: Employed Full-time Lives: With Family Alcohol Use: None Substance Use Type: None Substance Use Comment - Amount & Last Used: in recovery process Smoking Status (MU): Heavy Every Day Tobacco Smoker Household Exposure Type: Cigarettes - Immunization History Most Recent Influenza Vaccination: never Most Recent Pneumonia Vaccination: never Review of Systems All Other Systems Reviewed And Are Negative: Yes Constitutional: Positive: Negative Skin: Positive: Negative Eyes: Positive: Negative ENT: Positive: Negative Respiratory: Positive: Negative Cardiovascular: Positive: Negative Gastrointestinal: Positive: Negative Genitourinary: Positive: Negative Motor: Positive: Negative Neurovascular: Positive: Negative Musculoskeletal: Positive: Myalgia Neurological: Positive: Negative Psychological: Positive: Negative Is Patient Immunocompromised?: No Physical Exam Triage Information Reviewed: Yes Appearance: Well-Appearing, Pain Distress - moderate Vital Signs: Initial Vital Signs Temp 98.4 F 05/26/19 16:15 Pulse 87 05/26/19 16:15 Resp 15 05/26/19 16:15 BP 131/79 05/26/19 16:15 Pulse Ox 100 05/26/19 16:15 Eye Exam: Normal ENT: Positive: Normal ENT inspection Neck exam: Normal Respiratory: Positive: Lungs clear, Normal breath sounds Cardiovascular: Positive: RRR, No Murmur Abdomen Description: Positive: Nontender, No Organomegaly, Soft Musculoskeletal Exam: Other - Antalgic gait, holding herself bent slightly forward at the lumbar spine. Musculoskeletal: Positive: Strength Intact, ROM Limited @ - lumbar spine with pain coming to neutral position, pain with lateral bending and rotation. Able to flex forward to about 60 degrees slowly., Other: - SLR to 80 degrees bilaterally. Neurological Exam: Other - DTR's in LE are normal. Neurological: Positive: Alert, Muscle Tone Normal Psychological Exam: Normal Skin Exam: Normal Back Pain Course/Dx - Course Course Of Treatment: Injection of toradol given for relief of acute pain. Begin naproxen for pain control. Rest and off work. [employer] closed from 05/28 through 09 June so will be off work through that date. - Differential Dx/Diagnosis Differential Diagnosis/HQI/PQRI: Herniated Disc, Strain, Sprain Provider Diagnosis: Lumbar strain Discharge ED - Sign-Out/Discharge Documenting (check all that apply): Patient Departure All imaging exams completed and their final reports reviewed: No Studies - Discharge Plan Condition: Stable Disposition: [facility] Prescriptions: Cyclobenzaprine TAB* [Flexeril 10 MG TAB*] 10 mg PO BEDTIME PRN #14 tab PRN Reason: Spasms - Back Naproxen [Naproxen 500 mg tab] 500 mg PO BID #30 tablet Patient Education Materials: Low Back Strain (ED), Lower Back Exercises (ED) Forms: *Work Release Referrals: No Primary Care Phys,NOPCP [Primary Care Provider] - Additional Instructions: You have received a dose of toradol today, which will help to control pain for the next 6 hours or so. You can take a dose of naproxen at about 10 pm. Use muscle relaxant at night to promote sleep. You can alternate heat and ice to the low back, and stretch as discussed. Follow up if you have continued pain or pain worsens. Expect gradual improvement over the next 7 days. Off work today and tomorrow. - Billing Disposition and Condition Condition: STABLE Disposition: Trans Higher Lvl of Care Fac
[2019-05-26] MEDS ORDERED: Ketorolac *IM* INJ* 60 MG/2 ML VIAL IM ONE (16:41)
== END 2019-05-26 17:08 | disposition short-term general hospital (02) ==
LOC: UCCORT 15:54
DX: S39.012A Strain of muscle, fascia and tendon of lower back, initial encounter (principal); F17.210 Nicotine dependence, cigarettes, uncomplicated; F41.9 Anxiety disorder, unspecified; Z79.899 Other long term (current) drug therapy; Z88.0 Allergy status to penicillin; W01.0XXA Fall on same level from slipping, tripping and stumbling without subsequent striking against object, initial encounter; Y93.89 Activity, other specified; Y92.9 Unspecified place or not applicable
CPT/HCPCS: 96372; 99212; G0463; J1885

== ENCOUNTER 2019-06-27 09:00 | Emergency (ER) | payer SELFPAY ==
[2019-06-27 09:50] VITALS: BP 131/84
--- NOTE | 2019-06-27 10:03 | UC ---
FLU HPI - HPI Summary HPI Summary: 28-year-old female with flulike symptoms over the past 2 days with fever last evening. She is a smoker, she did not get a flu shot. - History of Current Complaint Chief Complaint: UCRespiratory Stated Complaint: B/L EAR COMPLAINT,ST,HEADACHE Time Seen by Provider: 06/27/19 09:27 Hx Obtained From: Patient Hx Last Menstrual Period: 06/09/19 ?: No Onset/Duration: Gradual Onset Severity Currently: Moderate Severity Initially: Moderate Pain Intensity: 7 Associated Signs & Symptoms: Positive: Fever, Myalgia, Cough, Nasal Congestion Related Hx: Possible Flu/Infectious Exposure - Allergy/Home Medications Allergies/Adverse Reactions: Allergies Allergy/AdvReac Type Severity Reaction Status Date / Time Penicillins Allergy Swelling Verified 06/27/19 09:40 Home Medications: Home Medications Etonogestrel [Nexplanon] 68 mg IMPLANT 06/27/19 [History] Naproxen [Naproxen 500 mg tab] 500 mg PO PRN 06/27/19 [History] PMH/Surg Hx/FS Hx/Imm Hx Previously Healthy: Yes Psychological History: Anxiety Other History Of: Hepatitis C - Surgical History Surgical History: Yes Surgery Procedure, Year, and Place: 2 c-sections - Family History Known Family History: Positive: Non-Contributory Negative: Hypertension, Diabetes - Social History Alcohol Use: None Substance Use Type: None Substance Use Comment - Amount & Last Used: in recovery process Smoking Status (MU): Heavy Every Day Tobacco Smoker Type: Cigarettes Amount Used/How Often: 1/2 ppd Household Exposure Type: Cigarettes - Immunization History Most Recent Influenza Vaccination: never Most Recent Pneumonia Vaccination: never Review of Systems All Other Systems Reviewed And Are Negative: Yes Constitutional: Positive: Fever, Chills, Fatigue ENT: Positive: Nasal Discharge Respiratory: Positive: Cough - Dry nonproductive cough Musculoskeletal: Positive: Myalgia Neurological: Positive: Headache Is Patient Immunocompromised?: No Physical Exam Triage Information Reviewed: Yes Appearance: No Pain Distress, Well-Nourished, Ill-Appearing - Mildly ill- appearing Vital Signs: Initial Vital Signs Temp 100 F 06/27/19 09:42 Pulse 90 06/27/19 09:42 Resp 16 06/27/19 09:42 BP 131/84 06/27/19 09:42 Pulse Ox 99 06/27/19 09:42 Vital Signs Reviewed: Yes Eyes: Positive: Conjunctiva Clear ENT: Positive: Pharynx normal, Nasal congestion, Nasal drainage, TMs normal, Uvula midline Neck: Positive: Supple, Nontender, No Lymphadenopathy Respiratory: Positive: Lungs clear, Normal breath sounds, No respiratory distress, No accessory muscle use Cardiovascular: Positive: RRR, No Murmur, Pulses Normal, Brisk Capillary Refill Musculoskeletal Exam: Normal Neurological Exam: Normal Psychological Exam: Normal Skin Exam: Normal Flu Course/Dx - Course Course Of Treatment: Rapid flu test: Positive Patient is comfortable here and nontoxic - Differential Dx/Diagnosis Provider Diagnosis: Influenza Discharge ED - Sign-Out/Discharge Documenting (check all that apply): Patient Departure All imaging exams completed and their final reports reviewed: No Studies - Discharge Plan Condition: Fair Disposition: HOME Patient Education Materials: Influenza (DC) Forms: *Work Release Referrals: Allen Negrete MD [Primary Care Provider] - Additional Instructions: Increase fluids, rest may take Tylenol every 4 hours and Motrin every 8 hours follow-up with your primary care provider if no improvement by the end of the week. - Billing Disposition and Condition Condition: FAIR Disposition: Home
[2019-06-27 10:05] LABS: Influenza A Molecular POSITIVE (Negative)
== END 2019-06-27 10:15 | disposition home or self-care (01) ==
LOC: UCCORT 09:00
DX: J11.1 Influenza due to unidentified influenza virus with other respiratory manifestations (principal); F17.210 Nicotine dependence, cigarettes, uncomplicated; Z88.0 Allergy status to penicillin
CPT/HCPCS: 99211; G0463